=== PATIENT | male | born 1985 | race Caucasian/White ===

== ENCOUNTER 2018-03-14 14:32 | Day surgery (SDC) | payer OTHER ==
[2018-03-14] MEDS ORDERED: Morphine VIAL* 4 MG/ML VIAL (1 ml vial) IV ONE (14:48)
[2018-03-14] MEDS ORDERED: Tetan/Diph/Pertus SYR(Tdap)* 0.5 ML SYR(BOOSTRIX) use SYR IM ONE (14:49)
[2018-03-14] MEDS ORDERED: PROCHLORPERAZINE INJ 5 MG/ML 2 ML VIAL IV ONE (14:49)
[2018-03-14] MEDS ORDERED: NS 0.9% 50 ML* 50 ML IV SCH (15:00)
[2018-03-14] MEDS ORDERED: ceFAZolin 2 GM PREMIX (*) 2 GM/50 ML BAG IVPB ONE (15:00)
--- NOTE | 2018-03-14 15:07 | ED ---
Upper Extremity Pain - HPI Summary HPI Summary: [id number]-[id number] patient here with left hand foreign body injury prior to arrival. Reports he was using a nail gun to build a chicken coop ("clean" building materials) when he accidentally shot himself at the base of the thumb and embedded nail in his hand. He reports he cannot move his fingers and he has paresthesia of his pinky finger. He is in a great deal of pain. He is unsure of his last tetanus vaccine. Last ate lunch at 10 AM and had an iced tea at 11 AM. Has not had anything to eat or drink since. Last surgery was a hernia repair 4 years ago - no difficulty with anesthesia. No history of cardiopulmonary issues. No dental implants. - History of Current Complaint Chief Complaint: EDGeneral Stated Complaint: NAIL GUN SHOT Time Seen by Provider: 03/14/18 14:44 Hx Obtained From: Patient, Family/Fruit Stuffer - brought in by male friend - Allergies/Home Medications Allergies/Adverse Reactions: Allergies Allergy/AdvReac Type Severity Reaction Status Date / Time No Known Allergies Allergy Verified 03/14/18 14:41 Home Medications: Home Medications NK [No Home Medications Reported] 03/14/18 [History Confirmed 03/14/18] PMH/Surg Hx/FS Hx/Imm Hx Previously Healthy: Yes Endocrine/Hematology History: Denies: Hx Anticoagulant Therapy, Hx Blood Disorders, Autoimmune Disease Cardiovascular History: Denies: Hx Hypertension Respiratory History: Denies: Hx Asthma, Hx Sleep Apnea - Immunization History Immunizations Up to Date: No Infectious Disease History: No Infectious Disease History: Denies: Hx of Known/Suspected MRSA, Traveled Outside the [place] in Last 30 Days - Family History Known Family History: Positive: None - Social History Lives: With Family - and 7 kids Alcohol Use: Weekly Hx Substance Use: Yes Substance Use Type: Reports: Marijuana Hx Tobacco Use: Yes Smoking Status (MU): Heavy Every Day Tobacco Smoker Review of Systems Negative: Chest Pain Negative: Shortness Of Breath Negative: Vomiting, Nausea Positive: no symptoms reported Positive: Arthralgia, Myalgia, Decreased ROM Skin: Other - FB Positive: Weakness, Paresthesia Positive: Anxious All Other Systems Reviewed And Are Negative: Yes Physical Exam Triage Information Reviewed: Yes Vital Signs On Initial Exam: Initial Vitals Temp Pulse Resp BP Pulse Ox 98 F 118 22 171/110 98 03/14/18 14:37 03/14/18 14:37 03/14/18 14:37 03/14/18 14:37 03/14/18 14:37 Vital Signs Reviewed: Yes Appearance: Positive: Pain Distress - Pt is pacing in his room holding his wrist of effected hand - face is red as he is bearing down in an effort to deal with his pain, Thin Skin: Positive: Warm, Skin Color Reflects Adequate Perfusion - cap refill at distal digits is < 2 secs; no bleeding from puncture site, Other - thick metal nail piercing skin at thenar eminance Eyes: Positive: EOMI ENT: Positive: Hearing grossly normal Respiratory/Lung Sounds: Positive: Breath Sounds Present Cardiovascular: Positive: Pulses are Symmetrical in both Upper and Lower Extremities Musculoskeletal: Positive: Limited @ - pt does not move his phalanges and has pain w/ any attempts at passive movement Neurological: Positive: Alert, Oriented to Person Place, Time, CN Intact II- III. Negative: Sensory/Motor Intact - motor is difficult to asses 2ndry to pain - reports sensation is intact about all phalanges but has some paresthesia in 5th phalange Psychiatric: Positive: Anxious Diagnostics - Vital Signs Vital Signs Temp Pulse Resp BP Pulse Ox 03/14/18 14:37 98 F 118 22 171/110 98 - Laboratory Lab Statement: Any lab studies that have been ordered have been reviewed, and results considered in the medical decision making process. Re-Evaluation - Re-Evaluation First Eval Change: Improved Course/Dx - Course Course Of Treatment: XR: penetrating injury - no acute bone pathology. Discussed w/ Dr. Quinn who will take pt to OR. PA here to evaluate for surgery. Stable at time of transition. - Diagnoses Provider Diagnoses: Foreign body of left hand Discharge - Sign-Out/Discharge Documenting (check all that apply): Discharge/Admit/Transfer - Discharge Plan Condition: Stable Disposition: ADMITTED TO [facility] - Billing Disposition and Condition Condition: STABLE Disposition: Admitted to [facility]
--- NOTE | 2018-03-14 15:35 | RAD ---
HISTORY: Penetrating trauma left hand COMPARISONS: None VIEWS: 2, Frontal and lateral views of the left hand FINDINGS: BONE DENSITY: Normal. BONES: There is no displaced fracture. JOINTS: There is no arthropathy. ALIGNMENT: There is no dislocation. SOFT TISSUES: Unremarkable. OTHER FINDINGS: There is a radiopaque linear object consistent with a nail noted overlying the volar aspect of the hand. This does not overlapping single bone in 2 projections and is felt to be within the soft tissues of the palm. IMPRESSION: RADIOPAQUE FOREIGN BODY IN THE VOLAR ASPECT OF THE SOFT TISSUES OF THE HAND CONSISTENT WITH THE HISTORY OF PENETRATING TRAUMA. NO ACUTE OSSEOUS INJURY. IF SYMPTOMS PERSIST, RECOMMEND REPEAT IMAGING.
--- NOTE | 2018-03-14 16:03 | CONSULT ---
Consult Consult: Patient seen in ER, H&P dictated. He will be taken to the operating room with Dr. Quinn today for removal of the nail in his hand.
[2018-03-14] MEDS ORDERED: HYDROmorphone INJ* 2 MG/ML CARPUJECT SYRINGE ONE (16:39)
[2018-03-14] MEDS ORDERED: Buffered Lidocaine 0.9% SYRIN* 5 ML/SYR SYRINGE INTRADERM ONE (16:52)
[2018-03-14] MEDS ORDERED: HYDROmorphone INJ* 1 MG/ML CARPUJECT SYRINGE IV ONE (16:54)
[2018-03-14] MEDS ORDERED: Bupivacaine 0.25% SDV* 30 ML ONE (17:36)
[2018-03-14] MEDS ORDERED: fentaNYL* 50 MCG/ML 2 ML VIAL (100 MCG VIAL) ONE (17:45)
[2018-03-14] MEDS ORDERED: Midazolam* 1 MG/ML 2 ML VIAL (2 MG) ONE (17:45)
[2018-03-14] MEDS ORDERED: Dexamethasone IV* 4 MG/ML 1 ML (4 MG) ONE (17:46)
[2018-03-14] MEDS ORDERED: Lidocaine 2% PF * 5 ML VIAL ONE (17:46)
[2018-03-14] MEDS ORDERED: Mivacurium Chloride* 20 MG/10 ML VIAL IV ONE (17:46)
[2018-03-14] MEDS ORDERED: Ketorolac INJ* 30 MG/ML 1 ML VIAL ONE (17:46)
[2018-03-14] MEDS ORDERED: Famotidine IV* 10 MG/ML 2 ML (20 mg) ONE (17:46)
[2018-03-14] MEDS ORDERED: Propofol* 10 MG/ML 20 ML BTL IV PUSH ONE (17:46)
[2018-03-14] MEDS ORDERED: ceFAZolin 1 GM VIAL(*) ONE (18:05)
[2018-03-14] MEDS ORDERED: Naloxone* 0.4 MG/ML 1 ML VIAL IV PRN (19:07)
[2018-03-14] MEDS ORDERED: Ondansetron ODT TAB* 4 MG PO PRN (19:07)
[2018-03-14] MEDS ORDERED: HYDROcodone/ACETAMIN 5-325 MG* 1 TAB PO PRN (19:07)
[2018-03-14] MEDS ORDERED: Levalbuterol 0.63MG/3ML NEB* UNIT OF USE INH PRN (19:07)
[2018-03-14] MEDS ORDERED: Acetaminophen TAB* 325 MG PO PRN (19:07)
[2018-03-14 19:32] VITALS: BP 129/69
--- NOTE | 2018-03-14 22:51 | HP ---
ORTHOPEDIC HISTORY AND PHYSICAL: DATE OF ADMISSION: 03/14/18 Asked for a consultation in the emergency department. ATTENDING PROVIDER: Dr. Chase Quinn.* (DICTATED BY MARIOLA LAMA) CHIEF COMPLAINT: Nail in the left hand from a nail gun. HISTORY OF PRESENT ILLNESS: The patient is a left-hand dominant male in with a nail into his left hand, which occurred today while he was using a nail gun to build a chicken coop. He states that the nail is not barbed and he accidentally shot himself at the base of the thumb. The patient is in severe pain of the left hand only. He has no other injuries. He states that he can wiggle his fingers to a very small extent, but it is very painful. He confirms normal sensation throughout his hand aside from the palmar aspect of his pinky, which he says has decreased sensation. The patient had a tetanus shot today in the emergency room. He ate lunch at 10 a.m. He drank ice tea at 11 a.m. He says he's not had anything to drink since. He has had surgery in the past without difficulty with anesthesia. He has no history of cardiac or respiratory issues. No dental implants. He does have a primary care provider at [facility]. He reports that he has no medical issues. He does not take any medications at home. PAST MEDICAL HISTORY: None. Denies any history of heart attack, stroke, or blood clots. MEDICATIONS: None. ALLERGIES: No known drug allergies. FAMILY HISTORY: The patient reports cancer of unknown type. SOCIAL HISTORY: He lives with family, and 7 kids. Alcohol use: Occasional. Substance abuse: Denies. Denies marijuana use, which was previously listed in the chart. He is an [id number] smoker. REVIEW OF SYSTEMS: General: The patient denies fever or chills. Cardio: Denies any chest pain or irregular beats. Respiratory: Denies any shortness of breath or cough. GI: Denies any abdominal pain. Musculoskeletal: Left- hand dominant, confirms left hand pain. Neuro: Confirms decreased sensation of the left pinky finger. PHYSICAL EXAMINATION GENERAL: The patient appears to be in a great deal of pain; he is clutching his left hand. RESPIRATORY: Clear to auscultation bilaterally. CARDIO: S1, S2. Regular rate and rhythm. GI: Bowel sounds normoactive, nontender to palpation. MUSCULOSKELETAL: Moving right upper extremity as well as left lower and right lower extremity well without pain. Left upper extremity moves at the elbow and shoulder well. The patient is clutching the left hand. He is very resistant to exam. I have removed the ring from his left ring finger; it is tied to his boots which he is aware of. He has a 3-1/4-inch non-barbed nail in the base of his left thumb. I am unable to visualize the other end of the nail. He is able to wiggle all digits a very small amount. His sensation is intact throughout all aspects of all digits. The palmar aspect of his 5th digit on the left does have some decreased sensation. Capillary refill is 2+ distally in all digits and radial pulses 2+. ASSESSMENT: Foreign body, nail, in the left thumb base. PLAN: The patient will be n.p.o. He will be brought to the operating room for removal of the nail on 03/14/[address] Quinn. MARIOLA LAMA [id number] #: [id number] TRACIE
--- NOTE | 2018-03-15 21:12 | OP ---
DATE OF OPERATION: 03/14/18 - [facility] DATE OF : 89 SURGEON: Chase Quinn MD VIBRATION ENGINEER: MARIOLA Livingston ANESTHESIOLOGIST: Dr. Ziegler. ANESTHESIA: General. PRE-OPERATIVE DIAGNOSIS: Retained nail, left palm, status post nail gun injury. POST-OPERATIVE DIAGNOSIS: Retained nail, left palm, status post nail gun injury. OPERATIVE PROCEDURE: Removal of nail from nail gun, left palm. INDICATIONS: Hector earlier today got a nail into the left palm, started in the thenar region and coursed distal ulnarly, finishing near the bases of the fourth and fifth metacarpals. He was having some numbness in the distribution of the fourth common digital nerve and potentially has an injury there. I told him today we remove the nail and then I will check him early next week to see if he is having any sensory deficits. His tendons were all appeared to be intact based of his preoperative exam. The only area of concern was that fourth common digital nerve. ESTIMATED BLOOD LOSS: 5 mL. COMPLICATIONS: None. FINDINGS: The nail came out uneventfully. DESCRIPTION OF PROCEDURE: Hector was seen in the preoperative holding area. The correct side, site, and procedure were identified. We came back to the operating room where he was anesthetized with general anesthetic. Once he was anesthetized, I removed the nail. There was some initial pulsatile bleeding, I held pressure for about 30 seconds and then the bleeding had completely stopped. I left the pressure off for couple of minutes to never start a bleeding again. The hand had been cleaned up and washed with some Betadine solution. I went ahead and placed some soft sterile dressings. The patient was the woken up and taken to the recovery room in stable condition. POSTOPERATIVE PLAN: I will see Hector back early next week to get a good neurological exam. [id number]/CPS #: [id number] MTDD
== END 2018-03-14 19:54 | disposition home or self-care (01) ==
LOC: ED 14:32 → OR 16:53
PROVIDERS: ATTEND Orthopaedic Surgery Hand Surgery
DX: S61.442A Puncture wound with foreign body of left hand, initial encounter (principal); F17.210 Nicotine dependence, cigarettes, uncomplicated; W45.0XXA Nail entering through skin, initial encounter; W29.4XXA Contact with nail gun, initial encounter; Y92.89 Other specified places as the place of occurrence of the external cause
CPT/HCPCS: 88300; 90715; 99285; J0690; J0780; J1100; J1170; J1885; J2250; J2270; J2704; J3010